=== PATIENT | female | born 1975 | race Caucasian/White ===

== ENCOUNTER 2017-07-25 09:46 | Emergency (ER) | payer OTHER ==
[~2017-07-25] VITALS: Ht 167.6 cm; Wt 64.2 kg
[2017-07-25 09:49] VITALS: BP 131/81
[2017-07-25] MEDS ORDERED: TIOT4MIS3 INH (11:33)
[2017-07-25] MEDS ORDERED: TRAZ50TA18 PO (11:34)
== END 2017-07-25 12:33 | disposition home or self-care (01) ==
LOC: ED 12:00
DX: S06.0X1A Concussion with loss of consciousness of 30 minutes or less, initial encounter (principal); S16.1XXA Strain of muscle, fascia and tendon at neck level, initial encounter; F17.200 Nicotine dependence, unspecified, uncomplicated; W01.198A Fall on same level from slipping, tripping and stumbling with subsequent striking against other object, initial encounter; Y93.89 Activity, other specified; Y92.89 Other specified places as the place of occurrence of the external cause; Y99.8 Other external cause status
CPT/HCPCS: 70450; 72125; 99284

== ENCOUNTER 2019-06-14 13:41 | Emergency (ER) | payer SELFPAY ==
[~2019-06-14] VITALS: Ht 170.2 cm; Wt 75.8 kg
[~2019-06-14 13:41] MED LIST: TIOT4MIS3 INH; TRAZ50TA66 PO
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
--- NOTE | 2019-06-14 14:20 | NUR ---
PT TO XRAY AT THIS TIME.
--- NOTE | 2019-06-14 14:20 | NUR ---
PT MEDICATED PER EMAR. PT TOLERATED WELL.
[2019-06-14 15:01] VITALS: BP 113/60
--- NOTE | 2019-06-14 15:10 | NUR ---
PT RESTING IN [facility]. PT'S AOX4. RESPS EVEN AND UNLABORED. BP/SPO2 MONITORS IN PLACE. CALL LIGHT WITHIN REACH.
--- NOTE | 2019-06-14 16:04 | NUR ---
Patient given discharge instructions and they have confirmed that they understand the instructions. Patient ambulatory with steady gait.
== END 2019-06-14 16:05 | disposition home or self-care (01) ==
LOC: ED 14:41
DX: R20.2 Paresthesia of skin (principal); F17.210 Nicotine dependence, cigarettes, uncomplicated; R00.0 Tachycardia, unspecified
CPT/HCPCS: 72050; 93005; 99283; 99406; J7512

== ENCOUNTER 2019-09-12 06:01 | Emergency (ER) | payer SELFPAY ==
[~2019-09-12] VITALS: Ht 170.2 cm; Wt 79.0 kg
--- NOTE | 2019-09-12 06:29 | NUR ---
PT CAME INTO ED TODAY DUE TO PAIN THAT STARTS IN UPPER NECK AREA/CERVICAL AREA AND RADIATES DOWN ARMS. PT STATES WHEN SHE HAS A TINGLING EPISODE THAT HER HANDS WILL TURN EXTREMELY WHITE AND LOSE COLOR. SENSATION AND TINGLING IS BILATERAL. PT PLACED ON SPO2/BP MONITORING. SITTING UP ON LUIS GUZMAN VSS. WCTM.
[2019-09-12] MEDS ORDERED: CYCLOBENZAPRINE 10 MG TABLET PO ONE (06:30)
[2019-09-12] MEDS ORDERED: CYCLOBENZAPRINE 10 MG TABLET ONE (06:57)
[2019-09-12 07:00] VITALS: BP 104/68
--- NOTE | 2019-09-12 07:01 | NUR ---
pt back from ct, medicated per apr, no change in condition. NAD. Report to Nick PARHAM, pt care trasnferred at this time.
--- NOTE | 2019-09-12 07:38 | NUR ---
PT GIVEN PILLOW AT REQUEST. PT STATES POSITIVE RELIEF OF SYMPTOMS FROM MEDICATION. CALL LIGHT IN REACH AND PT ENCOURAGED TO CALL FOR NEEDS.
== END 2019-09-12 08:17 | disposition home or self-care (01) ==
LOC: ED 06:53
DX: M54.12 Radiculopathy, cervical region (principal); R20.0 Anesthesia of skin; J44.9 Chronic obstructive pulmonary disease, unspecified; Z90.89 Acquired absence of other organs; Z79.899 Other long term (current) drug therapy
CPT/HCPCS: 72125; 99284; J7512

== ENCOUNTER 2019-10-08 23:38 | Emergency (ER) | payer SELFPAY ==
[~2019-10-08] VITALS: Ht 170.2 cm; Wt 82.3 kg
[2019-10-09] MEDS ORDERED: ALBUTEROL/IPRATROPIUM 2.5MG/0.5MG, 3 ML NPPB ONE
[2019-10-09 00:18] LABS: BASOPHILS # (AUTO) 0.02 x10^3/uL (0-0.1); BASOPHILS % (AUTO) 0 % (0-1); EOSINOPHILS # (AUTO) 0.04 x10^3/uL (0-0.4); EOSINOPHILS % (AUTO) 1 % (1-7); LYMPHOCYTES # (AUTO) 1.79 x10^3/uL (1-3.4); LYMPHOCYTES % (AUTO) 29 % (22-44); MD NO; MEAN CORPUSCULAR HEMOGLOBIN 28.2 pg (27.0-34.8); MEAN CORPUSCULAR HGB CONC 33.3 g/dL (32.4-35.8); MEAN CORPUSCULAR VOLUME 84.7 fL (80-100); MEAN PLATELET VOLUME 7.7 fL (7.4-10.4); MONOCYTES # (AUTO) 0.51 x10^3/uL (0.2-0.8); MONOCYTES % (AUTO) 8 % (2-9); NEUTROPHILS % (AUTO) 62 % (42-75); PLATELET COUNT 339 x10^3/uL (130-400); RED BLOOD COUNT 4.08 x10^6/uL (3.82-5.3); RED CELL DISTRIBUTION WIDTH 17.4 % (9.6-15.2)
[2019-10-09] MEDS ORDERED: ALBUTEROL/IPRATROPIUM 2.5MG/0.5MG, 3 ML ONE (00:21)
[2019-10-09 00:30] LABS: ALBUMIN 3.8 g/dL (3.4-5.0); ANION GAP 9 mmol/L (5-15); CALCIUM 9.5 mg/dL (8.5-10.1); CHLORIDE 109 mmol/L (98-107); CREATININE 0.76 mg/dL (0.55-1.02)
--- NOTE | 2019-10-09 00:43 | NUR ---
Alert, answering questions appropriately. States increased SOB x 3 days. Pt states recent air travel to [place], unknown covid contact. Pt states emphysema at baseline. Hoarse voice noted. No s/sx acute respiratory distress. No use of accessory muscled noted. O2 high 90s RA, RR WDL. Ambulates independently, steady gait. Denies fever/chills. Denies chest pain. Denies abd pain
[2019-10-09 01:24] VITALS: BP 99/53
== END 2019-10-09 01:40 | disposition home or self-care (01) ==
LOC: ED 10-09 00:04
DX: J04.0 Acute laryngitis (principal); B97.89 Other viral agents as the cause of diseases classified elsewhere; R07.89 Other chest pain; R06.02 Shortness of breath; R05 Cough; J44.9 Chronic obstructive pulmonary disease, unspecified; I49.3 Ventricular premature depolarization
CPT/HCPCS: 36415; 71045; 80048; 82040; 84703; 85025; 85379; 87081; 87880; 93005; 94640; 99285

== ENCOUNTER 2020-03-29 18:43 | Emergency (ER) | payer MEDICAID ==
[~2020-03-29] VITALS: Ht 167.6 cm; Wt 69.6 kg
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
--- NOTE | 2020-03-29 21:20 | NUR ---
Pt back from [place].
[2020-03-29 21:36] VITALS: BP 154/91
== END 2020-03-29 22:12 | disposition home or self-care (01) ==
LOC: ED 22:06
DX: I82.613 Acute embolism and thrombosis of superficial veins of upper extremity, bilateral (principal); M79.621 Pain in right upper arm; M79.622 Pain in left upper arm; F15.10 Other stimulant abuse, uncomplicated; F17.210 Nicotine dependence, cigarettes, uncomplicated; J44.9 Chronic obstructive pulmonary disease, unspecified; Z72.9 Problem related to lifestyle, unspecified
CPT/HCPCS: 93970; 99284; 99406